=== PATIENT | female | born 1965 | race Caucasian/White ===

== ENCOUNTER 2016-06-03 11:47 | Emergency (ER) | payer OTHER ==
[2016-06-03] MEDS ORDERED: IPRATROPIUM/ALBUTEROL 3 ML DEYVIAL ONE (12:08)
[2016-06-03] MEDS ORDERED: IPRATROPIUM/ALBUTEROL 3 ML DEYVIAL IH ONE (12:09)
--- NOTE | 2016-06-03 13:05 | UCPHY ---
H & P Time Seen by Provider: 06/03/16 12:35 Patient Type: New HPI/ROS: 51-year-old female presents complaining of asthma exacerbation states she is out of her inhaler. She states she has an appointment with a primary care physician in 4 days but does not feel like she will build a last to that appointment at this time. She denies fevers or chills she has cough and wheezing. She has not been on a steroid inhaler in the past. She has been on prednisone but states she becomes acutely agitated when on prednisone Review of systems As per HPI-positive cold symptoms General no fever no chills no weakness HEENT no eye pain no eye discharge. No eye redness, no sore throat Respiratory positive cough, no shortness of breath, positive wheezing Cardiac no chest pain, no peripheral edema GI no abdominal pain, no diarrhea, no constipation, no nausea, no vomiting no flank pain, no hematuria, no dysuria Musculoskeletal no myalgias, no joint pain Heme no easy bruising, no easy bleeding Endo no polyuria, no polydipsia Skin no rashes, no pruritus Neuro no syncope, no dizziness, no headaches Psych is no suicidal ideation, no homicidal ideation Past Medical/Surgical History: Asthma Social History: Denies excessive alcohol or drug use Smoking Status: Heavy smoker Physical Exam: 51-year-old female alert and oriented no acute distress nontoxic appearance afebrile Alert and oriented nontoxic appearance, no acute distress afebrile Atraumatic normocephalic Extraocular muscles intact, anicteric Nares mild yellowish discharge Oropharynx mild erythema no tonsillar swelling no exudate no uvular deviation, tolerating own secretions Neck supple no lymphadenopathy Lungs clear to auscultation bilaterally, scattered wheezing Heart regular rate and rhythm Abdomen normoactive bowel sounds soft nontender Extremities no cyanosis clubbing or edema Skin no rash Constitutional: Initial Vital Signs Temperature (C) 36.9 C 06/03/16 12:10 Heart Rate 87 06/03/16 12:10 Respiratory Rate 18 06/03/16 12:10 Blood Pressure 146/89 H 06/03/16 12:10 O2 Sat (%) 94 06/03/16 12:10 O2 Delivery Mode Room Air Allergies/Adverse Reactions: No Known Allergies Allergy (Unverified 06/03/16 12:13) Home Medications: Medication Instructions Recorded Albuterol 06/03/16 Albuterol [Ventolin Hfa Inhaler] 2 puffs IH Q4 PRN #0 mdi 06/03/16 Budesonide/Formoterol 80/4.5 2 puffs IH BID #1 mdi 06/03/16 [Symbicort 80-4.5 Mcg Inhaler] Flonase Nasal [place] 06/03/16 predniSONE 40 mg PO DAILY #5 tab 06/03/16 Medical Decision Making ED Course/Re-evaluation: Patient seen and evaluated for cough and wheeze. Patient given a DuoNeb with marked relief Impression Asthma exacerbation Plan Albuterol Add steroid inhaler Patient refusing steroid taper states she cannot tolerate prednisone - Data Points Medications Given: Discontinued Medications Albuterol/Ipratropium (Duoneb) 3 ml IH EDNOW ONE Stop: 06/03/16 12:10 Last Admin: 06/03/16 12:10 Dose: 3 ml Departure - Departure Disposition: Home, Routine, Self-Care Clinical Impression: Asthma Condition: Good Instructions: Asthma (ED) Referrals: NONE *PRIMARY CARE P,. [Primary Care Provider] - As per Instructions Prescriptions: Albuterol [Ventolin Hfa Inhaler] 2 puffs IH Q4 PRN #0 mdi PRN Reason: Cough, Moderate Budesonide/Formoterol 80/4.5 [Symbicort 80-4.5 Mcg Inhaler] 2 puffs IH BID #1 mdi predniSONE 40 mg PO DAILY #5 tab - PQRS PQRS Measurement: na
[2016-06-03 13:20] VITALS: BP 140/92; PULSE 73; RESP 16; TEMP 98.2; O2SAT 95
== END 2016-06-03 13:19 | disposition home or self-care (01) ==
LOC: CED 11:47
DX: J45.901 Unspecified asthma with (acute) exacerbation (principal)
CPT/HCPCS: G0463-PO